=== PATIENT | male | born 1935 | race Caucasian/White ===

== ENCOUNTER 2016-09-01 09:33 | Outpatient (CLI) | payer MEDICARE ==
--- NOTE | 2016-09-01 14:21 | Diagnostic Imaging Report ---
[facility] [address] [facility].[address] [address] Report Submission Date: Sep 01, 2016 12:27:56 PM [employer] Patient Study Name: REMINGTON JULIAN Date: Sep 01, 2016 10:41:42 AM [employer] Modality Type: US Gender: M Description: DPLX SCN XTRCRAN ART CMP ILENE : 35 Institution: [facility] Physician: BEE HOLT Carotid ultrasound Clinical history: History of carotid stenosis status post left endarterectomy. Follow-up. Technique: Real time sonography of the carotid and vertebral arteries is performed in transverse and longitudinal views. Findings: Intimal thickening is evident in the common carotid arteries bilaterally with scattered plaque in the region of the carotid bulb. There is apparent stenosis in the external carotid artery on the left on the reynoso scale images. Internal carotid waveforms are within normal limits without significant spectral broadening. Internal carotid peak velocities measure 123 cm/sec on the right and 93 cm/sec on the left with an internal carotid to common carotid artery ratio 1.7 on the right and 0.8 on the left. The external carotid peak velocity on the left is elevated to 491 cm/sec. The vertebral arteries demonstrate normal cephalad flow. Right vertebral waveform is abnormal with diminished diastolic flow suggesting more distal stenosis. Impression: 1. Intimal thickening and plaque formation. 2. Bilateral less than 50% internal carotid stenosis. 3. Stenosis of the left external carotid artery. 4. Loss of diastolic flow in the right vertebral artery suggesting more distal stenosis. The degree of carotid stenosis is estimated using the Society of Radiologists in Ultrasound consensus conference of 2003 criteria. Electronically signed on Sep 01, 2016 12:27:56 PM [employer] by: Jose HUTCHISON
== END 2016-09-01 09:35 ==
LOC: RAD 09:33
PROVIDERS: ATTEND Internal Medicine Cardiovascular Disease
DX: I65.21 Occlusion and stenosis of right carotid artery (principal); E78.5 Hyperlipidemia, unspecified; I10 Essential (primary) hypertension
CPT/HCPCS: 93880

== ENCOUNTER 2016-09-15 10:37 | Outpatient (CLI) | payer MEDICARE | END 2016-09-15 10:47 | LOC: CARD 10:37 | PROVIDERS: ATTEND Internal Medicine Cardiovascular Disease | DX: I25.10 Atherosclerotic heart disease of native coronary artery without angina pectoris (principal) | CPT/HCPCS: G0463 ==

== ENCOUNTER 2016-11-03 14:06 | Outpatient (CLI) | payer MEDICARE | END 2016-11-03 14:07 | LOC: LAB 14:06 | PROVIDERS: ATTEND Family Medicine | DX: R63.5 Abnormal weight gain (principal) | CPT/HCPCS: 36415; 84443 ==

== ENCOUNTER 2016-12-09 11:19 | Outpatient (CLI) | payer MEDICARE ==
--- NOTE | 2016-12-09 14:45 | Diagnostic Imaging Report ---
KRISTIN MARTINS [facility] [address] [facility].[address] [address] Report Submission Date: Dec 09, 2016 12:15:41 PM CDT Patient Study Name: REMINGTON JULIAN Date: Dec 09, 2016 11:36:01 AM CDT Modality Type: CR Gender: M Description: CHEST : 35 Institution: [facility] Physician: KRISTIN MARTINS Chest - two views Clinical history: Productive cough for 5-6 days. Findings: Examination of the chest in PA and lateral views with no prior film for comparison demonstrates postoperative changes with multiple sternotomy wires and surgical clips from previous bypass grafting. The cardiac silhouette is enlarged and the aorta is atherosclerotic. There is a patchy infiltrate in the left lower lobe in the retrocardiac region with minimal discoid changes in the right base. Impression: 1. Left lower lobe infiltrate. 2. Cardiomegaly and aortic atherosclerosis. 3. Postoperative chest. Electronically signed on Dec 09, 2016 12:15:41 PM CDT by: Jose HUTCHISON
== END 2016-12-09 11:20 ==
LOC: RAD 11:19
PROVIDERS: ATTEND Physician Assistant
DX: J18.9 Pneumonia, unspecified organism (principal)
CPT/HCPCS: 71020

== ENCOUNTER 2016-12-22 09:45 | Outpatient (CLI) | payer MEDICARE ==
[2016-12-22 10:31] LABS: eGFR (African) > 60; eGFR (Non-African) > 60
[2016-12-22 15:13] VITALS: BP 162/78
== END 2016-12-22 09:46 ==
LOC: LAB 09:45
PROVIDERS: ATTEND Physician Assistant
DX: R07.89 Other chest pain (principal)
CPT/HCPCS: 36415; 80053; 84484

== ENCOUNTER 2016-12-22 11:38 | Emergency (ER) | payer MEDICARE ==
[2016-12-22] MEDS ORDERED: ASPIRIN 81 MG CHEW TAB PO ONE (11:58)
--- NOTE | 2016-12-22 11:58 | ED Physician Documentation ---
Chest Pain - HISTORIAN Historian: patient - HPI Chief Complaint: Chest Pain Onset: days ago (1) Timing: gone now Duration: other (5 minutes) Last known Well Date: 12/22/16 Last Known Well Time: 12:53 Last known Well Code/Unknown Code: Known Context: activity Severity: mild Quality: tightness Chest Pain Radiation: no radiation Chest Pain Signs/Symptoms: denies: nausea, vomiting, diaphoresis Worsened By: nothing Relieved By: nothing Further Comments: yes (Has been diagnosed pneumonia and strted on antibotic for 10. Patient was seen by PA today for recheck. Patient states that he has had some chest discomfort even before pneumonia. But since then he has been having more discomort then before. Sometimes related to exerction. Has been having some night sweats. No SOB noted. Had a troponin done today and was mildy elevated. Episodes last for about 5-10 minutes when they occur.) - ROS CONST: none MS/LYMPH: none GI/: none EYES/ENT: none SKIN/ENDO: none - PAST HX NM risk factors: hyperlipidemia, cardiac disease DVT/PE Risk Factors: none GI disease: GERD Lung disease: none Surgeries/Procedures: cardiac bypass (Sep), cardiac stent (2001, 2004, 2007) , other Immunizations: referred to PCP Allergies/Adverse Reactions: Allergies Allergy/AdvReac Type Severity Reaction Status Date / Time [id number]-Ace-Rlx Reductase Allergy Muscle Verified 12/22/16 12:29 Inhibitor Pain, Mental Status changes Home Medications: Ambulatory Orders Medication Instructions Recorded Aspirin EC [Ecotrin] 81 mg PO DAILY 12/22/16 Clopidogrel Bisulfate [Plavix] 75 mg PO DAILY 12/22/16 Metoprolol Tartrate [Lopressor] 50 mg PO BID 12/22/16 Naproxen Sodium [Naproxen Sodium] 220 mg PO PRN 12/22/16 [place]-3 Fatty Acids/Fish Oil [Fish 1,000 mg PO TID 12/22/[address] 1,000 mg Softgel] Ranitidine HCl [Zantac] 150 mg PO DAILY 12/22/16 amLODIPine BESYLATE [Norvasc] 5 mg PO DAILY 12/22/16 - SOCIAL HX Smoking History: non-smoker Alcohol Use: none Drug Use: none - FAMILY HX Family HX: CAD over 55 - REVIEWED ASSESSMENTS Nursing Assessment Reviewed: Yes Vitals Reviewed: Yes Progress - Progress Progress: 1303 I have talked with Dr Solomon about patient and suggested if patient is agreeable to have stress test done tomorrow. Start aspirin therapy. When I talked to patient about this he and his family felt that maybe he should be admitted to hospital until stress test or cath could be done. I will review request with Dr Solomon. In light of elevated troponin and intermittent chest pain I feel that this is reasonable at this time. - EKG/XRAY/CT EKG: NSR, no ST T wave changes ED Results Lab/Radiology - Radiology Radiology Impressions: chest x-ray cardiomegally, no inflitrate noted. Chest Pain Physical Exam - EXAM General Appearance: no acute distress, alert EENT: ENT inspection normal Neck: nml inspection, no carotid bruit. No: JVD present, lymphadenopathy Respiratory: no resp. distress, chest non-tender, nml breath sounds. No: wheezes, rales, rhonchi CVS: reg. rate & rhythm, no murmur, no gallop, no friction rub Abdomen: soft, no organomegaly, normal bowel sounds, no abdominal bruit Skin: warm/dry, normal color Extremities: non-tender, normal range of motion Neuro: oriented X3, mood/affect nml, cognition normal Discharge Clincal Impression: Unstable angina Referrals: Reinier Hoyt MD [Primary Care Provider] - 2 Days Home Medications: Ambulatory Orders Aspirin EC [Ecotrin] 81 mg PO DAILY 12/22/16 Clopidogrel Bisulfate [Plavix] 75 mg PO DAILY 12/22/16 Metoprolol Tartrate [Lopressor] 50 mg PO BID 12/22/16 Naproxen Sodium [Naproxen Sodium] 220 mg PO PRN 12/22/16 [place]-3 Fatty Acids/Fish Oil [Fish Oil Dr 1,000 mg Softgel] 1,000 mg PO TID 10/09 Ranitidine HCl [Zantac] 150 mg PO DAILY 12/22/16 amLODIPine BESYLATE [Norvasc] 5 mg PO DAILY 12/22/16 Condition: Good Disposition: XFER SHT-TRM HOSP Decision to Admit: [id number] Date of Decison to Admit: 12/22/16 Decision Time: 14:00
[2016-12-22 12:13] LABS: BASOPHILS % 0.8 (0.0-1.5); EOSINOPHILS % 2.1 % (0.0-6.8); MEAN CORPUSCULAR HEMOGLOBIN 27.3 pg (28.0-34.0); MEAN CORPUSCULAR VOLUME 83.5 fl (80.0-100.0); MONOCYTES % 6.5 % (0.0-11.0); NEUTROPHILS # 4.5 # k/uL (1.4-7.7)
--- NOTE | 2016-12-22 12:54 | Diagnostic Imaging Report ---
GAYATHRI LOVE [facility] [address] [facility] [address] [address] Report Submission Date: December 22, 2016 12:35:14 PM CDT Patient Study Name: REMINGTON JULIAN Date: December 22, 2016 12:04:47 PM CDT Modality Type: CR Gender: M Description: CHEST : 35 Institution: [facility] Physician: GAYATHRI LOVE Chest -two views CLINICAL HISTORY: Abnormal electrocardiogram. FINDINGS: Examination of the chest in PA and lateral views with comparison to examination of 12/09/2016 demonstrates postoperative changes with multiple sternotomy wires and surgical clips consistent with previous bypass grafting. Cardiac silhouette is enlarged and the aorta is atherosclerotic. Monitor leads superimpose the chest. Degenerative changes are seen in the thoracic vertebrae. IMPRESSION: Postoperative chest. Cardiomegaly and aortic atherosclerosis. No active disease. No significant change. Electronically signed on December 22, 2016 12:35:14 PM CDT by: Jose HUTCHISON
[2016-12-22 15:13] VITALS: BP 162/78
== END 2016-12-22 14:55 | disposition short-term general hospital (02) ==
LOC: ED 11:38
DX: I20.0 Unstable angina (principal)
CPT/HCPCS: 71020; 85025; 99283; 99284; S1016

== ENCOUNTER 2017-03-30 11:17 | Outpatient (CLI) | payer MEDICARE | END 2017-03-30 11:19 | LOC: CARD 11:17 | PROVIDERS: ATTEND Internal Medicine Cardiovascular Disease | DX: I25.10 Atherosclerotic heart disease of native coronary artery without angina pectoris (principal) | CPT/HCPCS: G0463 ==

== ENCOUNTER 2017-10-26 12:57 | Outpatient (CLI) | payer MEDICARE ==
[2017-10-26 15:12] LABS: BASOPHILS % 0.8 (0.0-1.5); EOSINOPHILS % 4.7 % (0.0-6.8); MEAN CORPUSCULAR HEMOGLOBIN 27.8 pg (28.0-34.0); MEAN CORPUSCULAR VOLUME 83.2 fl (80.0-100.0); MONOCYTES % 6.6 % (0.0-11.0); NEUTROPHILS # 4.7 # k/uL (1.4-7.7)
[2017-10-26 15:42] LABS: eGFR (African) > 60; eGFR (Non-African) > 60
== END 2017-10-26 13:05 ==
LOC: CARD 12:57
PROVIDERS: ATTEND Internal Medicine Cardiovascular Disease
DX: I25.10 Atherosclerotic heart disease of native coronary artery without angina pectoris (principal); E78.5 Hyperlipidemia, unspecified; I10 Essential (primary) hypertension
CPT/HCPCS: 36415; 80048; 84443; 85025; G0463

== ENCOUNTER 2017-12-07 | Outpatient (CLI) | payer MEDICARE | END 2017-12-07 11:13 | CPT/HCPCS: G0463 ==

== ENCOUNTER 2018-02-08 09:32 | Outpatient (CLI) | payer MEDICARE ==
--- NOTE | 2018-02-09 06:53 | Diagnostic Imaging Report ---
PATRICIA ALVARADO [facility] [address] [facility] [address] [address] Report Submission Date: Feb 08, 2018 3:53:11 PM CDT Patient Study Name: REMINGTON JULIAN Date: Feb 08, 2018 9:38:00 AM CDT Modality Type: DX Gender: M Description: LOWER EXTREMITY : 35 Institution: [facility] Physician: PATRICIA ALVARADO Examination: Plain film right foot History: FOOT PAIN AT MTP JOINT (Hx) / ITS.REASON right foot pain at MTP joint (DICOM Hx) / ITS.REASON right foot pain at MTP joint (Pt comments) Findings: 3 views of the right foot demonstrates n osteopenia. Articular degenerative changes. No fracture or dislocation. Calcaneal spurs. No soft tissue swelling. No joint effusion. Impression: Osteopenia and degenerative changes. No acute osseous process. Electronically signed on Feb 08, 2018 3:53:11 PM CDT by: Gonzalez HUTCHISON
== END 2018-02-08 09:33 ==
LOC: RAD 09:32
PROVIDERS: ATTEND Family Medicine
DX: M79.671 Pain in right foot (principal)
CPT/HCPCS: 73630

== ENCOUNTER 2018-03-01 12:29 | Outpatient (CLI) | payer MEDICARE | END 2018-03-01 12:32 | LOC: CARD 12:29 | PROVIDERS: ATTEND Internal Medicine Cardiovascular Disease | DX: I25.10 Atherosclerotic heart disease of native coronary artery without angina pectoris (principal); E78.5 Hyperlipidemia, unspecified; I10 Essential (primary) hypertension | CPT/HCPCS: G0463 ==

== ENCOUNTER 2019-07-14 14:59 | Outpatient (CLI) | payer MEDICARE ==
[2019-07-14 15:34] LABS: eGFR (Non-African) 57
[2019-07-14 15:35] LABS: HDL 32 mg/dL (>40)
== END 2019-07-14 15:05 ==
LOC: LABRHC 14:59
PROVIDERS: ATTEND Family Medicine
DX: E78.00 Pure hypercholesterolemia, unspecified (principal); I10 Essential (primary) hypertension
CPT/HCPCS: 80053; 80061; 85027